=== PATIENT | female | born 1965 | race Caucasian/White ===

== ENCOUNTER 2016-10-27 19:32 | Emergency (ER) | payer OTHER ==
[~2016-10-27] VITALS: Ht 154.9 cm; Wt 110.0 kg
[~2016-10-27 19:32] MED LIST: ASPI-110 PO; ATOR10TA PO; CHOL50006 PO; LEVO137T2 PO; VITA500T49 PO; ZITHTAB PO
[2016-10-27 19:37] VITALS: BP 174/92; PULSE 127; RESP 16; TEMP 98.4; O2SAT 98
--- NOTE | 2016-10-27 19:45 | PD ---
Physical Exam Date Seen by Provider: October 27, 2016 Time Seen by Provider: 19:42 Narrative 51 YOWF C/O N/V/D ABD PAIN 10 AM. NO F/C. NO URINARY CHANGES. PAIN 8/10 VS NOTED AWAITING BED PLACEMENT Data Data Last Documented VS Vital Signs Date Time Temp Pulse Resp B/P Pulse Ox O2 Delivery O2 Flow Rate FiO2 10/27/16 19:37 98.4 127 16 174/92 98 Room Air [facility] Medical Record Reviewed: No Supervised Visit with LOGAN: Suman Kent October 27, 2016 19:45
[2016-10-27] MEDS ORDERED: ATOR10TA15 PO (20:02)
[2016-10-27] MEDS ORDERED: LEVO175T2 PO (20:02)
[2016-10-27] MEDS ORDERED: VITA500T4 PO (20:02)
[2016-10-27] MEDS ORDERED: ERGO1CAP10 PO (20:02)
[2016-10-27] MEDS ORDERED: ASPI1TAB69 PO (20:02)
--- NOTE | 2016-10-27 20:02 | PD ---
HPI Chief Complaint: GI Complaint Time Seen by Provider: 19:51 Travel History International Travel<30 days: No Contact w/Intl Traveler<30days: No Traveled to known affect area: No History of Present Illness HPI 51-year-old female complains of abdominal pain with nausea vomiting diarrhea. Patient states that symptoms started this morning. Patient denies any blood or mucus in stool or vomitus. Patient states the abdominal pain and cramping pain diffuse over the abdomen. Patient denies any pain radiation. Patient denies any headache. Patient denies any chest pain or shortness of breath. Patient denies any dysuria or frequency. Patient denies any fever chills. On a scale of 1-10 the pain is a 6. Patient states that she has chills but no fever. Patient was in contact with other people with similar symptoms recently. PFSH Past Medical History Arthritis: No Asthma: Yes Autoimmune Disease: No Blood Disorders: No Anxiety: No Depression: No Heart Rhythm Problems: No Cancer: No Cardiovascular Problems: Yes (PACEMAKER) High Cholesterol: No Chemotherapy: No Chest Pain: Yes Congestive Heart Failure: No COPD: No Cerebrovascular Accident: Yes (POSSIBLE 2011) Diabetes: Yes (NEWLY DX IN [facility]) Patient Takes Glucophage: No Diminished Hearing: No Endocrine: Yes GERD: Yes Glaucoma: No Genitourinary: No Headaches: No Hepatitis: No Hiatal Hernia: No Hypertension: Yes Immune Disorder: No Kidney Stones: No Musculoskeletal: Yes (hip & knee pain bilat) Neurologic: No Psychiatric: No Reproductive: No Respiratory: Yes (ALLLERGIES) Immunizations Current: Yes Myocardial Infarction: No Radiation Therapy: No Renal Failure: No Seizures: No Sickle Cell Disease: No Sleep Apnea: No Thyroid Disease: Yes (hypothyroid) Ulcer: No Influenza Vaccination: No ?: Not Menopausal: Yes Past Surgical History Abdominal Surgery: Yes (appendectomy in 1989) AICD: No Appendectomy: Yes (1989) Cardiac Surgery: No Ear Surgery: No Endocrine Surgery: No Eye Surgery: No Genitourinary Surgery: No Gynecologic Surgery: No Oral Surgery: No Pacemaker: Yes Thoracic Surgery: No Social History Alcohol Use: No Tobacco Use: No Substance Use: No Allergies-Medications (Allergen,Severity, Reaction): Coded Allergies: Sulfa (Verified Allergy, Mild, Rash, 10/27/16) Reported Meds & Prescriptions Reported Meds & Active Scripts Active Reported Atorvastatin (Atorvastatin Calcium) 10 Mg Tab 10 Mg PO HS Vitamin D (Ergocalciferol) 50,000 Unit Cap 50,000 Units PO Q7D Vitamin B-12 (Cyanocobalamin) 500 Mcg Tab 500 Mcg PO DAILY Levothyroxine (Levothyroxine Sodium) 175 Mcg Tab 175 Mcg PO DAILY Aspirin 81 Mg Tabdr 81 Mg PO DAILY Review of Systems General / Constitutional: No: Fever Eyes: No: Visual changes HENT: No: Headaches Cardiovascular: No: Chest Pain or Discomfort Respiratory: No: Shortness of Breath Gastrointestinal: Positive: Nausea, Vomiting, Diarrhea, Abdominal Pain Genitourinary: No: Dysuria Musculoskeletal: No: Pain Skin: No Rash Neurologic: No: Weakness Psychiatric: No: Depression Endocrine: No: Polydipsia Hematologic/Lymphatic: No: Easy Bruising Physical Exam Narrative GENERAL: Well-nourished, well-developed patient. SKIN: Focused skin assessment warm/dry. HEAD: Normocephalic. EYES: No scleral icterus. No injection or drainage. NECK: Supple, trachea midline. No JVD or lymphadenopathy. CARDIOVASCULAR: Regular rate and rhythm without murmurs, gallops, or rubs. RESPIRATORY: Breath sounds equal bilaterally. No accessory muscle use. GASTROINTESTINAL: Abdomen soft, nondistended. Patient has mild diffuse tenderness over the abdomen. No rebound tenderness. No mass. MUSCULOSKELETAL: No cyanosis, or edema. BACK: Nontender without obvious deformity. No CVA tenderness. Neurologic exam normal. Data Data Last Documented VS Vital Signs Date Time Temp Pulse Resp B/P Pulse Ox O2 Delivery O2 Flow Rate FiO2 10/27/16 19:37 98.4 127 16 174/92 98 Room Air Orders Complete Blood Count With Diff (10/27/16 19:56) Comprehensive Metabolic Panel (10/27/16 19:56) Lipase (10/27/16 19:56) Iv Access Insert/Monitor (10/27/16 19:56) Ecg Monitoring (10/27/16 19:56) Oximetry (10/27/16 19:56) Ondansetron Inj (Zofran Inj) (10/27/16 20:00) Sodium Chlor 0.9% 1000 Ml Inj (Ns 1000 M (10/27/16 19:56) Diphenoxylate/Atropine Tab (Lomotil Tab) (10/27/16 20:00) Labs Laboratory Tests Test 10/27/16 20:10 White Blood Count 12.8 TH/MM3 Red Blood Count 5.10 MIL/MM3 Hemoglobin 13.6 GM/DL Hematocrit 40.3 % Mean Corpuscular Volume 79.1 FL Mean Corpuscular Hemoglobin 26.7 PG Mean Corpuscular Hemoglobin 33.8 % Concent Red Cell Distribution Width 15.8 % Platelet Count 347 TH/MM3 Mean Platelet Volume 8.8 FL Neutrophils (%) (Auto) 91.3 % Lymphocytes (%) (Auto) 4.8 % Monocytes (%) (Auto) 3.3 % Eosinophils (%) (Auto) 0.1 % Basophils (%) (Auto) 0.5 % Neutrophils # (Auto) 11.7 TH/MM3 Lymphocytes # (Auto) 0.6 TH/MM3 Monocytes # (Auto) 0.4 TH/MM3 Eosinophils # (Auto) 0.0 TH/MM3 Basophils # (Auto) 0.1 TH/MM3 CBC Comment AUTO DIFF Differential Comment AUTO DIFF CONFIRMED Sodium Level 135 MEQ/L Potassium Level 4.1 MEQ/L Chloride Level 103 MEQ/L Carbon Dioxide Level 21.6 MEQ/L Anion Gap 10 MEQ/L Blood Urea Nitrogen 7 MG/DL Creatinine 1.06 MG/DL Estimat Glomerular Filtration 54 ML/MIN Rate Random Glucose 125 MG/DL Calcium Level 8.7 MG/DL Total Bilirubin 1.2 MG/DL Aspartate Amino Transf 36 U/L (AST/SGOT) Alanine Aminotransferase 22 U/L (ALT/SGPT) Alkaline Phosphatase 130 U/L Total Protein 7.5 GM/DL Albumin 3.5 GM/DL Lipase 90 U/L [facility] Medical Decision Making Medical Screen Exam Complete: Yes Emergency Medical Condition: Yes Interpretation(s) 21:34 PM. CBC WBC 12.8. 91 neutrophil. Sodium 135. Creatinine 1.6. GFR 54. Total bili 1.2. Alkaline phosphatase 130. Differential Diagnosis Differential diagnosis including gastroenteritis, gastritis, PUD, and otitis, cholecystitis, colitis, UTI, pyelonephritis, electrolyte abnormality, dehydration. Narrative Course 51-year-old female with abdominal cramping, nausea vomiting diarrhea. Normal saline solution 1 L IV bolus. Zofran 4 mg IV. Lomotil one tablet by mouth given. Diagnosis Primary Impression: Gastroenteritis Patient Instructions: General Instructions Additional Instructions: Clear fluids for 25 hours and advance as tolerated. Take medication as needed. Follow-up with personal physician. Return if persistent problem or worse. Med/Other Pt SpecificInfo: Prescription(s) given Scripts Diphenoxylate-Atropine (Lomotil)2.5-0.025 Mg Tab1 Tab PO Q6H PRN (DIARRHEA) #12 TAB Ref 0 Prov:Josiah White MD 10/27/16 Ondansetron Odt (Zofran Odt)4 Mg Tab4 Mg SL Q6HR PRN (Nausea/Vomiting) #10 TAB Prov:Josiah White MD 10/27/16 Disposition: 01 DISCHARGE HOME Condition: Stable Josiah White MD October 27, 2016 20:02
[2016-10-27] MEDS: SODIUM CHLOR 0.9% 1000 ML INJ 1,000 ML IV SCH (20:23)
[2016-10-27] MEDS: ONDANSETRON HCL 4 MG/2 ML VIAL IVP ONE (20:23)
[2016-10-27] MEDS: DIPHENOXYLATE/ATROPINE 2.5 MG/0.025 MG TAB PO ONE (20:34)
[2016-10-27 20:39] LABS: AUTOMATED NEUTROPHIL # 11.7 TH/MM3 (1.8-7.7); BASOPHIL # 0.1 TH/MM3 (0-0.2); BASOPHIL % 0.5 % (0.0-2.0); EOSINOPHIL % 0.1 % (0.0-4.0); HEMATOCRIT 40.3 % (35.0-46.0); LYMPH % 4.8 % (9.0-44.0); LYMPHOCYTE # 0.6 TH/MM3 (1.0-4.8); MEAN CELL VOLUME 79.1 FL (80.0-100.0); MEAN CORPUSCULAR HEMOGLOBIN 26.7 PG (27.0-34.0); MEAN CORPUSCULAR HGB CONC 33.8 % (32.0-36.0); MONO % 3.3 % (0.0-8.0); NEUT % 91.3 % (16.0-70.0); PLATELET COUNT 347 TH/MM3 (150-450); RED CELL DISTRIBUTION WIDTH 15.8 % (11.6-17.2); WHITE BLOOD COUNT 12.8 TH/MM3 (4.0-11.0)
[2016-10-27 20:41] LABS: HEMO FLAGS AUTO DIFF
[2016-10-27 21:07] LABS: SCAN/DIFF AUTO DIFF CONFIRMED
[2016-10-27 21:10] LABS: ALKALINE PHOSPHATASE 130 U/L (45-117); ALT (GPT) 22 U/L (10-53); ANION GAP 10 MEQ/L (5-15); AST (GOT) 36 U/L (15-37); BICARBONATE 21.6 MEQ/L (21.0-32.0); BLOOD UREA NITROGEN 7 MG/DL (7-18); CHLORIDE 103 MEQ/L (98-107); GLOMERULAR FILTRATION RATE 54 ML/MIN (>89); SODIUM (NA) 135 MEQ/L (136-145); TOTAL BILIRUBIN ADULT 1.2 MG/DL (0.2-1.0)
[2016-10-27 21:14] LABS: POTASSIUM 4.1 MEQ/L (3.5-5.1)
[2016-10-27] MEDS ORDERED: ZOFR4TAB3 SL (21:37)
[2016-10-27] MEDS ORDERED: LOMO2.5T PO (21:37)
[2016-10-27 21:44] VITALS: BP 130/69
== END 2016-10-27 21:46 | disposition home or self-care (01) ==
LOC: NEPC 19:32
DX: K52.9 Noninfective gastroenteritis and colitis, unspecified (principal); R11.2 Nausea with vomiting, unspecified; R19.7 Diarrhea, unspecified; J45.909 Unspecified asthma, uncomplicated; Z86.73 Personal history of transient ischemic attack (TIA), and cerebral infarction without residual deficits; E11.9 Type 2 diabetes mellitus without complications; K21.9 Gastro-esophageal reflux disease without esophagitis; I10 Essential (primary) hypertension; E03.9 Hypothyroidism, unspecified
CPT/HCPCS: 80053; 83690; 85025; 96361; 96374; 99284; J2405; J7030